=== PATIENT | female | born 1990 | race Caucasian/White ===

== ENCOUNTER 2017-07-10 12:06 | Emergency (ER) | payer OTHER ==
[2017-07-10 12:11] VITALS: BP 111/66; PULSE 73; TEMP 98.7; BMI 33.6
--- NOTE | 2017-07-10 12:58 | PDOC ---
History of Present Illness - General Chief Complaint: Vaginal Bleeding Stated Complaint: VAG BLEEDING, 5 WKS Time Seen by Provider: 07/10/17 12:43 History Source: Patient Exam Limitations: No Limitations - History of Present Illness Initial Comments: CHIEF COMPLAINT: 26 y/o afebrile female, [id number], approximately 6 weeks with LMP 05/31/17, c/o vaginal spotting today. HISTORY OF PRESENT ILLNESS: The patient states 3 days ago she had some mild lower abdominal cramping, 2 days ago she had left flank pain radiating into her pelvis and today woke up with pink spotting. She called her OB, Dr. Becerril, who sent her here. She denies fever, cough, CP, SOB, n/v/d, back pain, hematuria, dysuria. Vital signs on arrival are within normal limits. REVIEW OF SYSTEMS: GENERAL/CONSTITUTIONAL: No fever/chills. No weakness. No weight change. HEAD, EYES, EARS, NOSE AND THROAT: No change in vision. No ear pain or discharge. No sore throat. CARDIOVASCULAR: No chest pain or shortness of breath. RESPIRATORY: No cough, wheezing, or hemoptysis. GASTROINTESTINAL: +lower abdominal cramping and vaginal spotting. GENITOURINARY: No dysuria, frequency, or change in urination. MUSCULOSKELETAL: No joint or muscle swelling or pain. No neck or back pain. SKIN: No rash or easy bruising. NEUROLOGIC: No headache, vertigo, loss of consciousness, or loss of sensation. PHYSICAL EXAM: GENERAL: The patient is awake, alert, and fully oriented, in no acute distress. She is well appearing, ambulatory, in NAD or obvious discomfort. HEAD: Normal with no signs of trauma. ENT: Pupils equal, round and reactive to light, extraocular movements intact, sclera anicteric, conjunctiva clear. Neck supple. LUNGS: Clear to auscultation bilaterally. Normal excursion. No respiratory distress or use of accessory muscles. CV: RRR, S1/S2, no MRG. Cap refill < 2 sec. ABDOMEN: Soft, non-distended, non-tender even to deep palpation, no hepatomegaly or splenomegaly, no masses. BACK: No CVA TTP b/l. VAGINAL: DEFERRED EXTREMITIES: Normal range of motion, no edema. NEUROLOGICAL: Normal speech, normal gait. CN II-XII grossly intact. SKIN: Warm, dry, normal turgor, no rashes or lesions noted. Past History - Past Medical History Allergies/Adverse Reactions: Allergies Allergy/AdvReac Type Severity Reaction Status Date / Time No Known Allergies Allergy Verified 07/10/17 12:11 Home Medications: Ambulatory Orders Nitrofurantoin Monohyd/M-Cryst [Macrobid -] 100 mg PO BID #14 capsule 07/10/17 Vit 108/Iron/Folic AC [ One Tablet] 1 each PO DAILY 07/10/17 COPD: No - Immunization History Immunization Up to Date: Yes - Suicide/Smoking/Psychosocial Hx Smoking History: Never smoked Have you smoked in the past 12 months: No Hx Alcohol Use: Yes (occasion) Drug/Substance Use Hx: No Substance Use Type: None *Physical Exam - Vital Signs Last Vital Signs Temp Pulse Resp BP Pulse Ox 98.7 F 73 18 111/66 99 07/10/17 12:08 07/10/17 12:08 07/10/17 12:08 07/10/17 12:08 07/10/17 12:08 ED Treatment Course - LABORATORY CBC & Chemistry Diagram: 07/10/17 13:01 - RADIOLOGY Radiology Studies Ordered: Category Date Time Status TRANSVAGINAL US PREG [US] Stat Ultrasound 07/10/17 12:52 Ordered Medical Decision Making - Medical Decision Making A/P: 26 y/o female, approximately 6 weeks , c/o vaginal spotting this morning. Plan is as follows: 1. Labs 2. UA/culture 3. Beta 4. Transvaginal ultrasound Transvaginal Ultrasound IMPRESSION: An intrauterine gestational sac and pole is identified. By ultrasound measurements 6 weeks 5 days. No heart rate identified. recommend clinical correlation. Recommend correlation with beta-HCGs and follow up sono Beta is 222. UA shows UTI. Will send rx for macrobid. Informed patient of all of the results. Provided her with a copy of the ultrasound and instructed her to keep her f/u appointment scheduled for Wednesday with Dr. Becerril for repeat ultrasound and hcg. The patient verbalizes understanding of all instructions, has no further questions and is awaiting discharge. *DC/Admit/Observation/Transfer Diagnosis at time of Disposition: Vaginal bleeding during , Threatened UTI (urinary tract infection) Qualifiers: Urinary tract infection type: acute cystitis Hematuria presence: with hematuria Qualified Code(s): N30.01 - Acute cystitis with hematuria - Discharge Dispostion Disposition: HOME Condition at time of disposition: Good - Referrals - Patient Instructions Printed Discharge Instructions: DI for Vaginal Bleeding During , DI for Threatened Additional Instructions: Discharge Instructions: -Your beta hcg is 222 on 07/10/17 -Your ultrasound shows a pole and gestational sac with measurement of 6 weeks and 5 days without a heartbeat -These results suggest you may be having a miscarriage. -please keep the follow up appointment with Dr. Becerril scheduled for Wednesday -Return to the ER with any worsening or concerning symptoms - Post Discharge Activity
[2017-07-10 13:24] LABS: BASO % 0.7 % (0-2.0); EOS % 1.7 % (0-4.5); HEMATOCRIT 41.2 % (32.4-45.2); HEMOGLOBIN 13.8 GM/dL (10.7-15.3); LYMPH % 31.6 % (8-40); MCH 30.6 pg (25.7-33.7); MCHC 33.5 g/dl (32.0-36.0); MEAN CELL VOLUME 91.3 fl (80-96); MEAN PLT VOLUME 8.7 fl (7.5-11.1); MONO % 7.6 % (3.8-10.2); NEUT % 58.4 % (42.8-82.8); PLATELET COUNT 277 K/MM3 (134-434); RBC 4.52 M/mm3 (3.60-5.2); RDW 13.4 % (11.6-15.6); WHITE BLOOD COUNT 7.3 K/mm3 (4.0-10.0)
[2017-07-10 13:55] LABS: URINE APPEARANCE CLEAR; URINE BILIRUBIN NEGATIVE (<2.0 mg/dL); URINE COLOR LTYELLOW; URINE GLUCOSE (UA) NEGATIVE (NEGATIVE); URINE KETONE NEGATIVE (NEGATIVE); URINE NITRITE NEGATIVE (NEGATIVE); URINE PROTEIN NEGATIVE (NEGATIVE); URINE UROBILINOGEN NEGATIVE mg/dL (0.2-1.0)
[2017-07-10 13:56] LABS: URINE LEUK ESTERASE 3+ (NEGATIVE)
[2017-07-10 13:59] LABS: EPI CELLS FEW /HPF (FEW); URINE BACTERIA RARE /hpf (NONE SEEN); URINE MUCUS RARE
== END 2017-07-10 15:12 | disposition home or self-care (01) ==
LOC: JER 12:06
DX: O26.891 Other specified pregnancy related conditions, first trimester (principal); O20.0 Threatened abortion; O23.11 Infections of bladder in pregnancy, first trimester; N30.01 Acute cystitis with hematuria; Z3A.01 Less than 8 weeks gestation of pregnancy
CPT/HCPCS: 36415; 76817-TC; 81003; 81015; 84484; 84702; 85025; 86850; 86900; 86901; 87086; 99283-25

== ENCOUNTER 2018-04-19 20:34 | Emergency (ER) | payer OTHER ==
--- NOTE | 2018-04-19 20:37 | PDOC ---
Rapid Medical Evaluation Chief Complaint: Back Pain Medical Evaluation: Allergies Allergy/AdvReac Type Severity Reaction Status Date / Time No Known Allergies Allergy Verified 04/19/18 20:36 I have performed a brief in-person evaluation of this patient. The patient presents with a chief complaint of: c/o lower abd and lower back pain x 1 week; is 5 weeks ; (2 miscarriages) has not had official ultrasound yet; denies vag bleeding Pertinent physical exam findings: pelvic deferred I have ordered the following: Labs, pelvic US The patient will proceed to the ED for further evaluation. 04/19/18 20:36
[2018-04-19 20:38] VITALS: BP 137/78; PULSE 80; TEMP 98.8; BMI 32.9
[2018-04-19 21:40] LABS: BASO % 0.4 % (0-2.0); EOS % 1.9 % (0-4.5); HEMATOCRIT 39.5 % (32.4-45.2); HEMOGLOBIN 13.9 GM/dL (10.7-15.3); LYMPH % 31.6 % (8-40); MCH 32.2 pg (25.7-33.7); MCHC 35.2 g/dl (32.0-36.0); MEAN CELL VOLUME 91.3 fl (80-96); MEAN PLT VOLUME 8.6 fl (7.5-11.1); MONO % 6.4 % (3.8-10.2); NEUT % 59.7 % (42.8-82.8); PLATELET COUNT 284 K/MM3 (134-434); RBC 4.33 M/mm3 (3.60-5.2); RDW 13.7 % (11.6-15.6); WHITE BLOOD COUNT 10.3 K/mm3 (4.0-10.0)
[2018-04-19 22:08] LABS: ANION GAP 9 MMOL/L (8-16); BLOOD UREA NITROGEN 11 mg/dL (7-18); CALCIUM 9.4 mg/dL (8.5-10.1); CHLORIDE 102 mmol/L (98-107); CO2 26 mmol/L (21-32); CREATININE 0.8 mg/dL (0.55-1.3); GLUCOSE,RANDOM 93 mg/dL (74-106); POTASSIUM 3.9 mmol/L (3.5-5.1); SODIUM 137 mmol/L (136-145)
--- NOTE | 2018-04-19 23:05 | PDOC ---
History of Present Illness <Miranda Larry - Last Filed: 04/19/18 23:54> - General History Source: Patient Exam Limitations: No Limitations - History of Present Illness Initial Comments: 04/19/18 23:58 The patient is a 27 year old A2 female, currently 5 weeks , with no past medical history who presents to the emergency department for evaluation of lower back pain. Patient reports a 2 day history of lower back pain and lower abdominal pain. She denies vaginal bleeding. Patient states she is concerned over the pain which developed shortly after finding out she is and want to be evaluated to ensure her is viable. Patients LMP 03/15/18. She states she has an appointment with her OBGYN next Wednesday on 04/26/18. The patient denies recent trauma, strenuous lifting, chest pain, shortness of breath, headache, and dizziness. Denies fevers, chills, nausea, vomiting, and any bowel/urinary symptoms. Allergies: No known allergies Social History: No reported alcohol, cigarette, or drug use. <Maci Howell - Last Filed: 04/20/18 00:01> - General Chief Complaint: Back Pain Stated Complaint: 5WKS ,ABDOMINAL PAIN Time Seen by Provider: 04/19/18 20:36 Past History - Past Medical History COPD: No - Reproductive History Cervical CA: No Dysfunctional Uterine Bleeding: No Ectopic : No Endometrial CA: No Polycystic Ovaries: No Therapeutic (s) & number: No Tubal Ligation: No - Immunization History Immunization Up to Date: Yes - Suicide/Smoking/Psychosocial Hx Smoking History: Never smoked Have you smoked in the past 12 months: No Hx Alcohol Use: Yes (occasion) Drug/Substance Use Hx: No Substance Use Type: None <Miranda Larry - Last Filed: 04/19/18 23:54> <Maci Howell - Last Filed: 04/20/18 00:01> - Past Medical History Allergies/Adverse Reactions: Allergies Allergy/AdvReac Type Severity Reaction Status Date / Time No Known Allergies Allergy Verified 04/19/18 20:36 Home Medications: Ambulatory Orders Nitrofurantoin Monohyd/M-Cryst [Macrobid -] 100 mg PO BID #14 capsule 07/10/17 Vit 108/Iron/Folic AC [ One Tablet] 1 each PO DAILY 07/10/17 Review of Systems - Review of Systems Able to Perform ROS?: Yes Comments:: 04/19/18 23:59 CONSTITUTIONAL: Absent: fever, chills, diaphoresis, generalized weakness, malaise, loss of appetite HEENT: Absent: rhinorrhea, nasal congestion, throat pain, throat swelling, difficulty swallowing, mouth swelling, ear pain, eye pain, visual Changes CARDIOVASCULAR: Absent: chest pain, syncope, palpitations, irregular heart rate, lightheadedness , peripheral edema RESPIRATORY: Absent: cough, shortness of breath, dyspnea with exertion, orthopnea, wheezing, stridor, hemoptysis GASTROINTESTINAL: (+)Abdominal pain. Absent: abdominal distension, nausea, vomiting, diarrhea, constipation, melena, hematochezia GENITOURINARY: Absent: dysuria, frequency, urgency, hesitancy, hematuria, flank pain, genital pain MUSCULOSKELETAL: (+)Back pain Absent: myalgia, arthralgia, joint swelling SKIN: Absent: rash, itching, pallor HEMATOLOGIC/IMMUNOLOGIC: Absent: easy bleeding, easy bruising, lymphadenopathy, frequent infections ENDOCRINE: Absent: unexplained weight gain, unexplained weight loss, heat intolerance, cold intolerance NEUROLOGIC: Absent: headache, focal weakness or paresthesias, dizziness, unsteady gait, seizure, mental status changes, bladder or bowel incontinence PSYCHIATRIC: Absent: anxiety, depression, suicidal or homicidal ideation, hallucinations. <Maci Howell - Last Filed: 04/20/18 00:01> *Physical Exam - Vital Signs Last Vital Signs Temp Pulse Resp BP Pulse Ox 98.8 F 80 18 137/78 98 04/19/18 20:36 04/19/18 20:36 04/19/18 20:36 04/19/18 20:36 04/19/18 20:36 <Miranda Larry - Last Filed: 04/19/18 23:54> - Vital Signs Last Vital Signs Temp Pulse Resp BP Pulse Ox 98.8 F 80 18 137/78 98 04/19/18 20:36 04/19/18 20:36 04/19/18 20:36 04/19/18 20:36 04/19/18 20:36 - Physical Exam Comments: 04/20/18 00:00 wnwd 27 y/o female in no acute distress head ncat neck supple Heart RRR. No gallops, murmurs, or rubs. lungs clear to auscultation bilaterally abd soft,nontender ext no e/c/c, MAEx4 skin warm and dry,no rashes neuro A&Ox3,no gross focal neuro deficits <Maci Howell - Last Filed: 04/20/18 00:01> Moderate Sedation - Procedure Monitoring Vital Signs: Procedure Monitoring Vital Signs Temperature 98.8 F 04/19/18 20:36 Pulse Rate 80 04/19/18 20:36 Respiratory Rate 18 04/19/18 20:36 Blood Pressure 137/78 04/19/18 20:36 O2 Sat by Pulse Oximetry (%) 98 04/19/18 20:36 <Miranda Larry - Last Filed: 04/19/18 23:54> - Procedure Monitoring Vital Signs: Procedure Monitoring Vital Signs Temperature 98.8 F 04/19/18 20:36 Pulse Rate 80 04/19/18 20:36 Respiratory Rate 18 04/19/18 20:36 Blood Pressure 137/78 04/19/18 20:36 O2 Sat by Pulse Oximetry (%) 98 04/19/18 20:36 <Maci Howell - Last Filed: 04/20/18 00:01> ED Treatment Course - LABORATORY CBC & Chemistry Diagram: 04/19/18 21:16 04/19/18 21:16 - ADDITIONAL ORDERS Additional order review: Laboratory Results 04/19/18 21:16 Sodium 137 Potassium 3.9 Chloride 102 Carbon Dioxide 26 Anion Gap 9 BUN 11 Creatinine 0.8 Creat Clearance w eGFR > 60 Random Glucose 93 Calcium 9.4 Beta HCG, Quant 925.0 04/19/18 21:16 RBC 4.33 MCV 91.3 MCHC 35.2 RDW 13.7 MPV 8.6 Neutrophils % 59.7 Lymphocytes % 31.6 Monocytes % 6.4 Eosinophils % 1.9 Basophils % 0.4 <Miranda Larry - Last Filed: 04/19/18 23:54> - LABORATORY CBC & Chemistry Diagram: 04/19/18 21:16 04/19/18 21:16 - ADDITIONAL ORDERS Additional order review: Laboratory Results 04/19/18 04/19/18 23:09 21:16 Sodium 137 Potassium 3.9 Chloride 102 Carbon Dioxide 26 Anion Gap 9 BUN 11 Creatinine 0.8 Creat Clearance w eGFR > 60 Random Glucose 93 Calcium 9.4 Beta HCG, Quant 925.0 Urine Color Yellow Urine Appearance Slcloudy Urine pH 6.0 Ur Specific [place] 1.015 Urine Protein Negative Urine Glucose (UA) Negative Urine Ketones Negative Urine Blood Negative Urine Nitrite Negative Urine Bilirubin Negative Urine Urobilinogen Negative Ur Leukocyte Esterase 1+ H D Urine WBC (Auto) 5 Urine RBC (Auto) <1 Ur Epithelial Cells Few Urine Mucus Rare 04/19/18 21:16 RBC 4.33 MCV 91.3 MCHC 35.2 RDW 13.7 MPV 8.6 Neutrophils % 59.7 Lymphocytes % 31.6 Monocytes % 6.4 Eosinophils % 1.9 Basophils % 0.4 <Maci Howell - Last Filed: 04/20/18 00:01> Medical Decision Making - Medical Decision Making 04/19/18 23:19 27-year-old female presents with lower back pain and some mild suprapubic pain. Last menstrual cycle was March 15 of this year and she is . [employer] is in [place]. She has an appointment with them next Wednesday. She denies any vaginal bleeding Past medical history 5, para 2 A2 cg 925, no vaginal bleeding, no pelvic cramping cbc unremarkable chemistries unremarkable 04/19/18 23:26 04/19/18 23:50 Ultrasound sound is on results 0.4 cm discrete fluid structure within the endometrial canal with no yolk sac or embryonic pole Endometrial thickening measuring 2.3 cm There is a 2.3 x 2 x 1.4 cm isoechoic focus within and less likely bashing into the medial aspect of the right ovary, probably representing a corpus luteum cyst with internal debris/blood and less likely an ectopic . The left ovary appears unremarkable. There is no evidence of ovarian torsion. There is no free fluid within the visualized lower pelvis. Case discussed with Dr. radha Post who recommends that the patient have a repeat beta-hCG in 48 hours. Impression threatened AB, demise, very early and less likely ectopic <Miranda Larry - Last Filed: 04/19/18 23:54> *DC/Admit/Observation/Transfer <Miranda Larry - Last Filed: 04/19/18 23:54> - Attestations Scribe Attestion: Documentation prepared by Maci Howell, acting as medical social worker for Miranda Larry MD. <Maci Howell - Last Filed: 04/20/18 00:01> Diagnosis at time of Disposition: Early stage of Low back pain Qualifiers: Chronicity: unspecified Back pain laterality: bilateral Sciatica presence: without sciatica Qualified Code(s): M54.5 - Low back pain - Patient Instructions Printed Discharge Instructions: DI for -- Discomforts and Remedies Additional Instructions: PLEASE HAVE A REPEAT BHCG AND ULTRASOUND IN 48 HOURS BY YOUR [employer] OR RETURN TO OUR EMERGENCY DEPARTMENT TO HAVE THE TEST REPEATED
[2018-04-19 23:26] LABS: URINE APPEARANCE SLCLOUDY; URINE BILIRUBIN NEGATIVE (<2.0 mg/dL); URINE COLOR YELLOW; URINE GLUCOSE (UA) NEGATIVE (NEGATIVE); URINE KETONE NEGATIVE (NEGATIVE); URINE LEUK ESTERASE 1+ (NEGATIVE); URINE NITRITE NEGATIVE (NEGATIVE); URINE PROTEIN NEGATIVE (NEGATIVE); URINE UROBILINOGEN NEGATIVE mg/dL (0.2-1.0)
[2018-04-19 23:42] LABS: EPI CELLS FEW /HPF (FEW); URINE MUCUS RARE
== END 2018-04-20 00:02 | disposition home or self-care (01) ==
LOC: JER 20:34
DX: O99.89 Other specified diseases and conditions complicating pregnancy, childbirth and the puerperium (principal); M54.5 Low back pain; Z3A.01 Less than 8 weeks gestation of pregnancy
CPT/HCPCS: 36415; 76817-TC; 80048; 81003; 81015; 84702; 85025; 87086; 99282-25